=== PATIENT | female | born 1995 | race Hispanic/Latino ===

== ENCOUNTER 2018-09-29 03:07 | Inpatient (IN) | payer MEDICAID, OTHER, SELFPAY ==
[2018-09-30] MEDS ORDERED: Bupivacaine 0.25% HCL 30 ML VIAL ONE (11:11)
[2018-09-30 22:00] VITALS: BMI 25.0
[2018-09-30] MEDS ORDERED: Promethazine HCl 25 MG/ML VIAL IM PRN (22:41)
[2018-09-30] MEDS ORDERED: Lidocaine 1% (PF) 30 ML VIAL SC PRN (22:41)
[2018-09-30] MEDS ORDERED: HYDROcodone/Acetaminophen 5/325 mg Tablet PO PRN (22:41)
[2018-09-30] MEDS ORDERED: Ibuprofen 800 MG TAB PO PRN (22:41)
[2018-09-30] MEDS ORDERED: Methylergonovine 0.2 MG/ML VIAL IM PRN (22:41)
[2018-09-30] MEDS ORDERED: Ondansetron PF 4 MG/2 ML Vial IVP PRN (22:41)
[2018-09-30] MEDS ORDERED: Misoprostol 200 MCG TAB PR PRN (22:41)
[2018-09-30] MEDS ORDERED: Diphenoxylate HCl/Atropine Tablet PO PRN (22:41)
[2018-09-30] MEDS ORDERED: Carboprost 250 MCG/ML AMP IM PRN (22:41)
[2018-09-30] MEDS ORDERED: NS w/ Oxytocin 10 units 500 ML IV SCH (22:45)
[2018-09-30] MEDS: Misoprostol 100 MCG TAB VAG SCH (22:58)
[2018-09-30 23:03] LABS: Hemoglobin 13.7 g/dL (12.0-16.0); Mean Corpuscular HGB CONC 34.2 g/dL (32.0-36.0); Mean Corpuscular Hemoglobin 31.9 pg (27.0-31.0); Mean Corpuscular Volume 93.3 fL (78.0-98.0); Mean Platelet Volume 9.1 fL (7.4-10.4); Platelet Count 224 thou/uL (130-400); RBC Distribution Width 12.3 % (11.5-14.5); Red Blood Cell (RBC) Count 4.28 mill/uL (4.20-5.40); White Blood Cell (WBC) Count 9.3 thou/uL (4.8-10.8)
--- NOTE | 2018-09-30 23:45 | PDOC.FPROB ---
FMR OB H&P: HPI - History of Present Illness Chief Complaint: IOL Indentification: 23 yo @ 40.1 wks by 1T US ncw LMP History of Present Illness: Ms Mullins presents to LD for scheduled induction, denies ctx, vb, LOF, ORTIZ, SOB , CP, abdominal pain or discharge. +FM Primary Care Physician: Jim FMR OB H&P: Current - Care : 1 Para: 0 Gestational age: 40.1 Due date: 09/29/18 Dating Criteria: 1T US Course/Complications: none - OB Labs Blood type: O RH: positive Antibody Screen: negative HIV: negative RPR: negative HepBsAg: negative Rubella: immune Quad screen: negative Urine drug screen: not done Gonorrhea: negative Chlamydia: negative Pap Smear: LSIL 1 hour gtt: neg GBS: negative H&H: 11.2 - First Trimester Ultrasound First trimester: updated dates, no concerns - Anatomy Survey Anatomy survey: enlarged stomach, referral to [facility] for anatomy scan- wnl FMR OB H&P: History - Past Medical History PMH: none - OB History OB History: none - 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: none - Surgical History Sx History: none - Social History Social History: no TAD - Family History Family History: none FMR OB H&P: Medications - Current Home Medications: Medication Instructions Recorded Confirmed Type Benzocaine-Menthol [Dermoplast 1 ml TOP PRN PRN #1 can 10/02/18 Rx [place]] Ibuprofen [Motrin] 800 mg PO Q8HR #30 tab 10/02/18 Rx Pnv No.95/Ferrous Fum/Folic AC 1 each PO DAILY #100 tablet 10/02/18 Rx [ Vitamin Tablet] Allergies/Adverse Reactions: Allergies Allergy/AdvReac Type Severity Reaction Status Date / Time No Known Allergies Allergy Unverified 09/30/18 22:01 FMR OB H&P: ROS - Review of Systems General: denies: fever/chills Eyes: denies: vision changes Cardiovascular: denies: chest pain, palpitation Respiratory: denies: cough, shortness of breath Gastrointestinal: denies: abdominal pain Genitourinary (Female): denies: dysuria, vaginal discharge, vaginal pain, contractions Musculoskeletal: denies: pain, stiffness Neurologic: denies: syncope Integumentary: denies: itching FMR OB H&P: Vital Signs - Maternal Vital signs: Vital Signs - First Documented Temp Pulse Resp BP Pulse Ox 98.3 F 74 20 137/76 100 09/30/18 21:42 09/30/18 21:42 09/30/18 21:42 09/30/18 21:42 09/30/18 21:42 - Heart Tones Baseline: 150 Variability: moderate Acceleration: present Deceleration: absent Category: category 1 [place] contractions every: 4-6 mins FMR OB H&P: Physical Exam - Physical Exam General: NAD, awake, alert and oriented HEENT: normocephalic and atraumatic, MMM, grossly normal vision, grossly normal hearing Neck: supple, trachea midline Chest: non-tender to palpation, no lesions Heart: RRR, normal S1/S2, no murmurs/rubs/gallops General: CTAB, no respiratory distress, good air movement Abdomen: soft, gravid, non-tender Musculoskeletal: normal gait and station, pulses present Neurological: sensation to pain,touch and proprioception grossly normal Skin: no rash, good tugor, capillary refill <2 seconds Lymphatic: no unusual bruising or bleeding Psychiatric: good judgement and insight - Pelvic Exam SVE: CL/TH/HI Dixon score: 2 Membranes: intact FMR OB H&P: Results - Labs Lab results: Laboratory Results - last 24 hr 09/30/18 21:34 WBC 9.3 RBC 4.28 Hgb 13.7 Hct 39.9 MCV 93.3 MCH 31.9 H MCHC 34.2 RDW 12.3 Plt Count 224 MPV 9.1 FMR OB H&P: A/P - Problem List (1) Term Status: Acute Code(s): Z34.80 - ENCOUNTER FOR SUPRVSN OF NORMAL , UNSP TRIMESTER Comment: Assessment and Plan: 23 yo @ 40.1 wks by 1T US ncw LMP - cervical exam CL/TH/HI, cytotec placed - continous monitoring - recheck in 4 hours Disposition: monitor on LD, routine induction Discussion: Date/Time: 09/30/18 [id number] This H&P was discussed with Dr. Paul and Dr. Ordaz who agree with the above documentation and plan. Attending Addendum - Attending Addendum Date/Time: 10/01/18 0046 I personally evaluated the patient and discussed the management with Dr. Mijares and Dr. Ordaz I agree with the History, Examination, Assessment and Plan documented above with any addition or exceptions noted below. 23 yo female at 40.1 wks admitted for elective IOL. R/B/A discussed. Questions answered. Patient would like to proceed with IOL. Unfavorable cervix. Will start induction with miso. Repeat exam in 4 hours. Cephalic on bedside sono. T cat 1. Uncomplicated . Labs reviewed. Lisa
--- NOTE | 2018-10-01 02:25 | PDOC.LDPN ---
Addendum entered and electronically signed by Terry Mijares DO 10/01/18 04:11: Check at 0330 2/70/-2, contractions q1-2 mins, no cytotec placed at this time Original Note: Labor & Delivery Progress Note - Subjective Subjective: comfortable, no concerns - Objective Vital signs reviewed and normal: yes General: NAD, resting Uterine fundus: non tender FHT: category 1 (baseline 150. accels present, no decels ) [place] contractions every: 3-4 mins - Assessment (1) Term Code(s): Z34.80 - ENCOUNTER FOR SUPRVSN OF NORMAL , UNSP TRIMESTER Status: Acute Comment: place cytotec when contractions spaced appropriately, cervical check at that time. Plan: continue plan of care <Terry Mijares - Last Filed: 10/01/18 02:44> - Assessment (1) Term Code(s): Z34.80 - ENCOUNTER FOR SUPRVSN OF NORMAL , UNSP TRIMESTER Status: Acute Comment: <Bhargavi Paul - Last Filed: 10/04/18 15:52> Attending Addendum - Attending Addendum Date/Time: 10/01/18 0550 I personally evaluated the patient and discussed the management with Dr. Mijares and Dr. Ordaz I agree with the History, Examination, Assessment and Plan documented above with any addition or exceptions noted below. Continue to monitor. Hold miso at this time due to frequency of contractions. Repeat exam in 2 hours to make sure still progressing. Consider ripening agent if not....miso vs balloon. Cat 1 tracing ABrayMD <Bhargavi Paul - Last Filed: 10/04/18 15:52>
[2018-10-01 02:27] LABS: HBSAg Index 0.18 S/CO (0-0.99); Hep B Surf Ag Non-Reactive S/CO (NonReactive)
[2018-10-01] MEDS: Butorphanol Tartrate 1 MG/ML VIAL SLOW IVP PRN ×2 (03:24→05:03)
[2018-10-01] MEDS: Lactated Ringer's 1,000 ML IV SCH ×2 (05:06→08:16)
[2018-10-01 06:28] LABS: Syphilis Antibody Nonreactive (Nonreactive); Syphilis Antibody Index 0.03 S/CO (<1.00 Non-Reactive)
[2018-10-01] MEDS ORDERED: Fentanyl 4 mcg/Bup 0.1% Cadd 100 ML ONE (07:25)
[2018-10-01] MEDS ORDERED: Fentanyl 100 MCG/2 ML VIAL ONE (07:48)
[2018-10-01] MEDS ORDERED: Fentanyl 100 MCG/2 ML VIAL EPIDURAL SCH (08:00)
--- NOTE | 2018-10-01 08:02 | PDOC.LDPN ---
Labor & Delivery Progress Note - Subjective Subjective: painful contractions - Objective Vital signs reviewed and normal: yes General: breathing through contractions Uterine fundus: non tender Dilation: 3 Effacement: 75% (80) Station: -2 FHT: category 1 [place] contractions every: 1-2 minutes - Assessment (1) Term Code(s): Z34.80 - ENCOUNTER FOR SUPRVSN OF NORMAL , UNSP TRIMESTER Current Visit: Yes Status: Acute Comment: place cytotec when contractions spaced appropriately, cervical check at that time. Plan: continue plan of care -: 23 yo at 40.2w for induction IOL 1. Term - sIUP - Cytotec placed last night, has not required further - SROM at 0642 and SVE 3/-2 2. GBS negative Pain control and epidural if desired
--- NOTE | 2018-10-01 08:26 | PDOC.LDPN ---
Labor & Delivery Progress Note - Subjective Subjective: comfortable - Objective Vital signs reviewed and normal: yes General: resting Dilation: 9 Effacement: 100% Station: 0 FHT: category 1 (120/mod/no accel/no decel) [place] contractions every: 2-3 minutes - Assessment (1) Term Code(s): Z34.80 - ENCOUNTER FOR SUPRVSN OF NORMAL , UNSP TRIMESTER Current Visit: Yes Status: Acute Comment: Plan: continue plan of care -: 23 yo at 40.2w for induction IOL 1. Term - sIUP - Cytotec placed last night, has not required further - SROM at 0642 - SVE now 9/100/0 station - Comfortable with epidural 2. GBS negative Recheck in 1-2 hours. Anticipate soon.
[2018-10-01] MEDS: Misoprostol 100 MCG TAB VAG SCH ×3 (09:00→14:48)
[2018-10-01] MEDS: NS / Oxytocin 40 units/1000ml 1,000 ML IV PRN ×2 (10:45→12:30)
--- NOTE | 2018-10-01 11:05 | PDOC.OPDEL ---
OB Operative/Delivery Note Delivery Dr/Surgeon: Jim Larios, clara Stallings Pre-Delivery Diagnosis: elective induction Procedure/Post Delivery Dx: spontaneous vaginal delivery Weeks gestation: 40 (40.2) Anesthesia: epidural - Findings A Sex: female - 1 min: 9 - 5 min: 9 - Additional Findings/Plan Placenta delivered: spontaneous Repaired Obstetrical Laceration: 2nd degree Estimated blood loss: QBL 164 ml Compilations/Other Findings: Vaginal Delivery Dictation Guideline Delivering Physician Jim Larios Procedure: Spontaneous Vaginal Delivery Anesthesia: epidural QBL: 164 ml Pre-op Diagnosis: 1. Term intrauterine induction of labor Post-op Diagnosis: 1. Term intrauterine , delivered Indications: A 23 y/o female presents for elective IOL Delivery Note: This is 23 yo F now P1@ 40.2 wks who delivered a viable F infant at 1130. Following an uneventful antepartum course, a vigorous F was delivered over an intact perineum in the R occipitoanterior position. Anterior Shoulder and then remainder of the body delivered. Nuchal cordx1. The head was held down and mouth and nares were bulb suctioned. Cord clamped after delayed cord clamping and cut and cord blood collected. Placenta delivered intact in the [place] presentation with a 3 vessel cord noted. Fundal massage was performed and the fundus was firm. The cervix and vagina were inspected and 2nd degree midline laceration noted and repaired with 3.0 vicryl in the usual fashion with good approximation and hemostasis. Infant went to nursery in good condition for routine care. Apgars were 9/9 at 1 & 5 minutes, respectively. Patient tolerated delivery well and went to after routine recovery/care. Post delivery plan: routine recovery <Andreia Frederick - Last Filed: 10/01/18 11:10> Attending Addendum - Attending Addendum Date/Time: 10/01/18 1720 I personally supervised and assisted with the . I agree with the History, Examination, Assessment and Plan documented above with any addition or exceptions noted below. <Darrell Stallings - Last Filed: 10/01/18 17:21>
[2018-10-01] MEDS ORDERED: Adacel (T-DAP) 0.5 ML SYRINGE IM ONE (12:24)
[2018-10-01] MEDS ORDERED: Milk Of Magnesia 30 ML UDCUP PO PRN (12:24)
[2018-10-01] MEDS ORDERED: Bisacodyl 10 MG SUPP PR PRN (12:24)
[2018-10-01] MEDS ORDERED: ePHEDrine/0.9% NaCl/PF SYRINGE 50 mg/10 ml SLOW IVP PRN (14:17)
[2018-10-01] MEDS ORDERED: Ondansetron PF 4 MG/2 ML Vial IVP PRN (14:17)
[2018-10-01] MEDS ORDERED: Naloxone HCl 0.4 mg/ml Vial IVP PRN ×2 (14:17)
[2018-10-01] MEDS ORDERED: Eucerin (Mineral Oil/Petrolatum,White) 30 gm Jar TOP PRN (14:17)
[2018-10-01] MEDS ORDERED: Lactated Ringer's 500 ML IV PRN (14:17)
[2018-10-01] MEDS ORDERED: Acetaminophen 325 MG TAB PO PRN (14:17)
[2018-10-01] MEDS ORDERED: Promethazine HCl 25 MG/ML VIAL IM PRN (14:17)
[2018-10-01] MEDS ORDERED: diphenhydrAMINE 50 MG/ML VIAL IVP PRN (14:17)
[2018-10-01] MEDS ORDERED: Fentanyl 4 mcg/Bupivacaine 0.1% Cassette 100 ML EPIDURAL SCH (14:30)
[2018-10-01] MEDS ORDERED: Communication Order-Pharmacy FS SCH (14:30)
[2018-10-01] MEDS ORDERED: Benzocaine/Menthol 20-0.5% 60 ML CAN TOP PRN (16:44)
[2018-10-01] MEDS ORDERED: Lanolin Ointment 7 GM TUBE TOP PRN (16:44)
[2018-10-01] MEDS ORDERED: Ferrous Sulfate 325 MG TAB PO SCH (17:00)
[2018-10-01 17:46] LABS: Hemoglobin 13.4 g/dL (12.0-16.0)
[2018-10-01] MEDS: Ibuprofen 800 MG TAB PO SCH ×2 (18:50→21:41)
[2018-10-01] MEDS ORDERED: Docusate Calcium (SURFAK) 240 MG CAP PO SCH (21:00)
[2018-10-02] MEDS: Ibuprofen 800 MG TAB PO SCH ×2 (06:34→13:41)
--- NOTE | 2018-10-02 07:05 | PDOC.PP ---
Post Progress Note Post Day #: 1 Subjective: Feeling great today and would like to go if possible. She does not note any discomfort in her perineum despite the swelling. Reports minimal lochia and good pain control. PO intake tolerated: yes Flatus: yes Ambulation: yes Weight Weight 66.224 kg - Physical Examination General: NAD Cardiovascular: no m/r/g, RRR Respiratory: clear to auscultation bilaterally Abdominal: + bowel sounds, lochia (scant), no distention, appropriately TTP Fundus firm & at: umbilicus Extremities: negative homans (B) Deviation from normal: L labia with notable swelling, nontender, not tense, slightly decreased Neurological: no gross focal deficits Psychiatric: A&Ox3, normal affect Result Diagrams: 10/01/18 17:17 Additional Labs: Post Labs Blood Type O POSITIVE 09/30/18 21:34 Hep Bs Antigen Non-Reactive S/CO (NonReactive) 09/30/18 21:34 (1) Term Code(s): Z34.80 - ENCOUNTER FOR SUPRVSN OF NORMAL , UNSP TRIMESTER Status: Acute Comment: - Assessment/Plan 23 yo G1 now P1 PPD #1 from 1. PPD #1 - Doing great, would like to go today 2. L labial swelling - Appears to be more edema than hematoma - H&H stable and interval decrease in size since yesterday - Continue to monitor today - Recommend close f/u with appt at [facility] Thursday 3. LSIL pap - Will need f/u PP Possible discharge this afternoon or tomorrow <Sarahi Fernandez - Last Filed: 10/02/18 08:25> Vital Signs (12 hours) Temp Pulse Resp BP Pulse Ox 10/02/18 08:00 98.0 F 63 18 101/52 L 99 Weight Weight 66.224 kg Result Diagrams: 10/01/18 17:17 Additional Labs: Post Labs Blood Type O POSITIVE 09/30/18 21:34 Hep Bs Antigen Non-Reactive S/CO (NonReactive) 09/30/18 21:34 <Darrell Stallings - Last Filed: 10/02/18 10:31> Attending Addendum - Attending Addendum Date/Time: 10/02/18 1031 I personally evaluated the patient and discussed the management with Dr. Fernandez. I agree with the History, Examination, Assessment and Plan documented above with any addition or exceptions noted below. <Darrell Stallings - Last Filed: 10/02/18 10:31>
[2018-10-02] MEDS ORDERED: Prenatal Vitamin 1 TAB PO SCH (09:00)
[2018-10-02 09:10] VITALS: BP 101/52; TEMP 98
== END 2018-10-02 18:40 | disposition home or self-care (01) | DRG 807 ==
LOC: EDSTATUS 16:57 → L&D 09-30 20:59 → 3SW 10-01 12:56
PROVIDERS: ADMIT Emergency Medicine; ATTEND Emergency Medicine
PROC: 10E0XZZ Delivery of Products of Conception, External Approach (ICD-10-PCS; principal; 2018-10-01)
PROC: 0KQM0ZZ Repair Perineum Muscle, Open Approach (ICD-10-PCS; 2018-10-01)
DX: O70.1 Second degree perineal laceration during delivery (principal); Z37.0 Single live birth; Z3A.40 40 weeks gestation of pregnancy; O69.81X0 Labor and delivery complicated by cord around neck, without compression, not applicable or unspecified
CPT/HCPCS: 36415; 51702; 76815; 85014; 85018; 85027; 86780; 86850; 86900; 86901; 87340; 90715; J0595; J3010; S0020

== ENCOUNTER 2019-09-07 01:04 | Emergency (ER) | payer MEDICAID, SELFPAY ==
[2019-09-07] MEDS ORDERED: Ciprofloxacin 500 MG TAB ONE (01:20)
== END 2019-09-07 01:55 | disposition home or self-care (01) ==
LOC: ERS 01:04
DX: Z20.811 Contact with and (suspected) exposure to meningococcus (principal)
CPT/HCPCS: 99283

== ENCOUNTER 2019-12-29 01:27 | Emergency (ER) | payer SELFPAY ==
[2019-12-29 02:05] LABS: #Basophils 0.1 thou/uL (0.0-0.2); #Eosinphils 0.1 thou/uL (0.0-0.7); #Lymphocytes 4.9 thou/uL (1.20-3.40); #Neutrophils 9.2 thou/uL (1.40-6.50); %Basophils 0.4 % (0.0-1.0); %Eosinophils 0.8 % (0.0-10.0); %Monocytes 6.4 % (0.0-10.0); %Neutrophils 60.4 % (42.0-75.0); Hemoglobin 13.1 g/dL (12.0-16.0); Mean Corpuscular HGB CONC 34.3 g/dL (32.0-36.0); Mean Corpuscular Hemoglobin 32.4 pg (27.0-31.0); Mean Corpuscular Volume 94.4 fL (78.0-98.0); Platelet Count 257 thou/uL (130-400); RBC Distribution Width 11.8 % (11.5-14.5); Red Blood Cell (RBC) Count 4.03 mill/uL (4.20-5.40); White Blood Cell (WBC) Count 15.2 thou/uL (4.8-10.8)
--- NOTE | 2019-12-29 07:56 | ULT ---
PRELIMINARY REPORT/[facility]/EMERGENCY AFTER HOURS PROCEDURE: EXAM: US Obstetrical, Complete <14 weeks CLINICAL HISTORY: Pelvic cramping pain, heavy vaginal bleeding with clots since 1900 last night No FH T reported on previous US 3 wks ago TECHNIQUE: Transabdominal imaging of the maternal pelvis and a <14 week gestation with image document ation. COMPARISON: None provided. FINDINGS: GESTATION: No evidence for intra-or extra uterine gestation however thickened heterogeneous endometri um is noted at 10 mm UTERUS: Unremarkable. No myometrial mass. Measures 8.3 x 5.2 x 6.7 cm CERVIX: Closed. Unremarkable. OVARIES: Unremarkable. No mass. The RIGHT side measures 2.3 x 1.4 x 2.1 cm and the LEFT side measure s 2.9 x 1.5 x 2.0 cm, demonstrating a 1.3 cm cyst FREE FLUID: No free fluid. IMPRESSION: No evidence for intra-or extrauterine gestation. Thickened heterogeneous endometrium is seen and the findings suggest a miscarriage given the clinical history ELECTRONICALLY SIGNED BY: Goran Garcia MD Dec 29, 2019 2:54:10 AM CDT FINAL REPORT TRANSABDOMINAL AND TRANSVAGINAL PELVIC ULTRASOUND WITH GRAYSCALE, COLOR FLOW, AND SPECTRAL DOPPLER IM AGING: I agree with the preliminary report given by [facility]. Transcribed Date/Time: 12/29/2019 8:11 AM
== END 2019-12-29 03:18 | disposition home or self-care (01) ==
LOC: ERS 01:27
DX: O03.9 Complete or unspecified spontaneous abortion without complication (principal)
CPT/HCPCS: 36415; 76856; 85025; 86900; 86901; 93976

== ENCOUNTER 2025-09-28 14:51 | Outpatient (CLI) | payer OTHER | END 2025-09-28 14:52 | disposition home or self-care (01) | LOC: ULT 14:51 | PROVIDERS: ATTEND Family Medicine | DX: Z34.82 Encounter for supervision of other normal pregnancy, second trimester (principal); Z3A.20 20 weeks gestation of pregnancy | CPT/HCPCS: 76805 ==